=== PATIENT | male | born 1975 | race Native Hawaiian/Other Pacific Islander ===

== ENCOUNTER 2018-11-05 14:35 | Outpatient (CLI) | payer OTHER ==
[2018-11-05 15:12] LABS: PLATELET COUNT 262 K/uL (142-355)
[2018-11-05 15:15] LABS: POTASSIUM 4.4 mmol/L (3.6-5.2)
== END 2018-11-05 22:13 | disposition home or self-care (01) ==
LOC: LAB 14:35
PROVIDERS: Student in an Organized Health Care Education/Training Program
DX: Z45.2 Encounter for adjustment and management of vascular access device (principal); Z51.81 Encounter for therapeutic drug level monitoring
CPT/HCPCS: 80053; 83735; 84100; 84478; 85027

== ENCOUNTER 2018-11-12 13:20 | Outpatient (CLI) | payer OTHER ==
[2018-11-12 14:05] LABS: PLATELET COUNT 366 K/uL (142-355)
[2018-11-12 14:25] LABS: POTASSIUM 4.4 mmol/L (3.6-5.2)
== END 2018-11-12 19:19 | disposition home or self-care (01) ==
LOC: LAB 13:20
PROVIDERS: Internal Medicine
DX: K22.0 Achalasia of cardia (principal); R63.4 Abnormal weight loss; R13.10 Dysphagia, unspecified; E11.65 Type 2 diabetes mellitus with hyperglycemia; I10 Essential (primary) hypertension
CPT/HCPCS: 80053; 83735; 84100; 84478; 85027